=== PATIENT | female | born 1985 | race Caucasian/White ===

== ENCOUNTER 2024-02-23 10:27 | Emergency (ER) | payer OTHER, SELFPAY ==
[2024-02-23 10:28] VITALS: BP 160/100; PULSE 88; RESP 19; TEMP 36.7; O2SAT 100; BMI 20.5
[2024-02-23 10:41] VITALS: O2SAT 98
--- NOTE | 2024-02-23 10:52 | EDS_ITS ---
HPI History of Present Illness Chief Complaint: Head Injury Narrative Narrative: 38-year-old female presents with dizziness/vertigo that she has had over the last 2 days. She was instructed by urgent care to present because this was newer in nature, although she has meclizine at home. She relates history that on Wednesday, she was picking up her kid, and did not realize that she was below as to the ceiling. She struck the right side of her head, near the top. She denies loss of consciousness, no neck pain, she does not take blood thinners. She thought that she was okay but the next morning awoke with dizziness. She feels slight rotation as the room spinning. She took meclizine 25 mg once yesterday, then once again in the middle the night, but awoke again with the dizziness. She has had intermittent tinnitus as well. No real headache, but went to urgent care because of the dizziness. No chest pain or other symptoms. PFSH PFSH Allergy/AdvReac Type Severity Reaction Status Date / Time No Known Allergies Allergy Verified 02/23/24 10:30 Social History Smoking Status: Never smoker ROS ROS ED ROS Narrative Constitutional: No fever, no chills. HEENT: No sore throat. No neck pain. No loss of vision. No rhinorrhea. Cardiovascular: No chest pain. No palpitations. No pedal edema. Respiratory: No cough, no shortness of breath. Abdominal: No abdominal pain. No nausea. No vomiting. Genitourinary: No dysuria. No hematuria. Musculoskeletal: No myalgias. No arthralgias. Neurologic: No headaches. Positive lightheadedness and dizziness. Room spinning slightly. No paresthesias. Skin: No rash. No change in color. Psychiatric: No depression. No anxiety. EXAM Physical Exam Narrative Exam Narrative: GCS 15. ABCs intact. Mild tenderness right parietal occipital scalp, no noted crepitance or hematoma. Neck soft and supple, without vertebral point tenderness or bony step-off. PERRL, EOMI. Regular rate and rhythm. Lungs clear to auscultation bilaterally. Abdomen soft nontender with normal active bowel sounds. Neurological examination shows her to be awake, alert, oriented x 3. Nonfocal, nonlateralizing. Able to raise arms above head without difficulty. Ambulatory in ED without difficulty. Const Vital Signs: 02/23/24 10:28 02/23/24 10:41 Temperature 98.0 F Temperature Source Temporal Pulse Rate 88 Respiratory Rate 19 H Respiratory Effort Normal Respiratory Depth Normal Respiratory Pattern Normal Blood Pressure 160/100 H Blood Pressure Mean 120 Pulse Ox 100 98 Oxygen Delivery Method Room Air Room Air MDM MDM MDM Narrative Medical decision making narrative: Differential diagnosis includes but not limited to postconcussive syndrome versus intracranial hemorrhage versus scalp contusion versus benign positional vertigo. I had a lengthy discussion with the patient and her . I do not feel CT imaging or laboratory work is indicated. I do not feel that the benefit outweighs the risk of radiation and expense. She already has meclizine at home. She was told to increase the dose to 50 mg every 6 hours as needed for vertiginous type symptoms. She was also instructed on brain rest. She was referred to a primary care provider and to neurology should her symptoms persist greater than 7 to 10 days. She was reassured. I feel she can be discharged to follow-up with a primary care provider/neurology. Return instructions to the emergency department were reviewed. Patient and agreeable to the plan. Disposition is discharged home in stable condition. History & Record Review Discussion w/independent historian: Patient and Family () Discharge Plan Triage Chief Complaint: Head Injury ED Provider: Luan Chavis Dx/Rx/DC Orders Clinical Impression: Dizziness, Post concussive syndrome Instructions: Coping with Concussion, ED Concussion, ED Dizziness, Uncertain Cause Primary Care Provider: NOT,DEFINED Referrals: Rob Farmer MD [Med Staff - Active Staff] - 1 Week if not improving Elmer Danielle MD [Non-Staff -Ordering Privileges] - 1 Week if not improving NOT,DEFINED [Primary Care Provider] - Activity Restrictions/Additional Instructions: Take your meclizine as needed for dizziness. You can take 50 mg every 6 hours/4 times a day as needed, but it may cause drowsiness. Return with new or worsening symptoms. Print Language: Tamazight Disposition Disposition: Home, Self Care
== END 2024-02-23 11:12 | disposition home or self-care (01) ==
LOC: ED 11:06
PROVIDERS: Emergency Provider Emergency Medicine; Visit Provider Emergency Medicine
DX: R42 Dizziness and giddiness (principal); F07.81 Postconcussional syndrome
CPT/HCPCS: 99282